=== PATIENT | male | born 1990 | race Asian ===

== ENCOUNTER 2017-05-03 19:12 | Emergency (ER) | payer OTHER ==
[~2017-05-03] VITALS: Ht 172.7 cm; Wt 77.1 kg
[2017-05-03] MEDS ORDERED: IBUP600T26 PO (22:00)
--- NOTE | 2017-05-03 22:00 | REPUSA ---
Clinical history: Pain, swelling. Findings: The left common femoral, superficial femoral, popliteal, and other deep venous structures c ompress normally and demonstrate normal color Doppler flow. Normal venous waveforms with augmentation are seen. Impression: No evidence of deep vein thrombosis in the left femoral popliteal venous system.
[2017-05-03 22:12] VITALS: BP 135/72
--- NOTE | 2017-05-04 00:59 | REP ---
Clinical: Pain. Technique: AP and lateral views of the left tibia / fibula. Findings: Osseous structures and joint spaces are intact and normal for age. No acute fracture dislocation. Surrounding soft tissues unremarkable. No subcutaneous emphysema or radiodense foreign body. Impression: Normal left tibia / fibula radiographs. Signed by Bharath Ray MD 05/04/2017 12:50 A
== END 2017-05-03 22:12 | disposition home or self-care (01) ==
LOC: M ED 22:04
DX: M79.662 Pain in left lower leg (principal)